=== PATIENT | male | born 1960 | race Caucasian/White ===

== ENCOUNTER → 2021-05-21 12:02 | Outpatient (CLI) | payer MEDICARE, SELFPAY ==
--- NOTE | 2021-05-21 | DI.CT.S_ITS ---
PROCEDURE: CT LUMBAR SPINE WO CON INDICATIONS: LOW BACK PAIN TECHNIQUE: Noncontrast 3 mm thick sections acquired from the T12 level to the sacrum. Sagittal and coronal reformats were constructed. For radiation dose reduction, the following was used: automated exposure control. COMPARISON: [facility] [place], CR, XR LUMBAR SPINE 2 OR 3 VIEWS, 04/23/2021, 14:01. FINDINGS: Image quality: Excellent. Bones: There is posterior fusion at L4-5. All hardware is intact without evidence of hardware fracture. There is 2 mm retrolisthesis of L2 on L3, L5 on S1 as well as grade 1 anterolisthesis of L4 on L5 measuring 8 mm. No acute vertebral body compression fractures. No suspicious lytic or blastic bony lesions. No pars defects. There is moderate disc space narrowing at L4-5. Mild disc bulges are present at L3-4 L5-S1. Minimal spinal stenosis at L2-3, L3-4. There is moderate bilateral foraminal narrowing at L5-S1 with facet hypertrophy. Soft tissues: No retroperitoneal masses or hematomas. Visualized aorta is normal in caliber. IMPRESSION: Posterior fusion at L4-5 with grade 1 anterolisthesis of L4 on L5 as above. Multilevel mild disc bulges as above. Moderate bilateral foraminal narrowing L5-S1 with facet arthropathy. Dictated by: Kayce Bernardo M.D. on 05/21/2021 at 16:00 Approved by: Kayce Bernardo M.D. on 05/21/2021 at 16:12
== END ==
PROVIDERS: PCP Nurse Practitioner; Referring Provider Orthopaedic Surgery Orthopaedic Surgery of the Spine; Visit Provider Orthopaedic Surgery Orthopaedic Surgery of the Spine
DX: M43.16 Spondylolisthesis, lumbar region (principal); M48.07 Spinal stenosis, lumbosacral region; Z98.1 Arthrodesis status; M51.26 Other intervertebral disc displacement, lumbar region; M51.27 Other intervertebral disc displacement, lumbosacral region
CPT/HCPCS: 72131

== ENCOUNTER 2022-04-17 10:15 | Outpatient (RCR) | payer MEDICARE, SELFPAY | END 2022-04-17 14:00 | LOC: PUL 10:15 | PROVIDERS: PCP Nurse Practitioner; Referring Provider Internal Medicine Pulmonary Disease; Visit Provider Internal Medicine Pulmonary Disease | DX: J98.6 Disorders of diaphragm (principal) | CPT/HCPCS: G0237; G0238 ==

== ENCOUNTER → 2023-01-19 10:51 | Outpatient (CLI) | payer OTHER, SELFPAY ==
--- NOTE | 2023-01-19 | DI.CT.S_ITS ---
PROCEDURE: CT UE LT W CON INDICATIONS: LEFT SHOULDER PAIN/SUBLUXATING BICEP TENDON TECHNIQUE: After the intra-articular administration of 12 mL of dilute non-ionic contrast, 1-1.5 mm thick sections acquired from the acromioclavicular joint to the inferior scapula, with coronal and sagittal reformatting. COMPARISON: [facility], [place], [place] SHOULDER INJECTION MR/CT LT, 01/19/2023, 12:15. FINDINGS: Image quality: Excellent. Bones: Moderate acromioclavicular joint osteoarthritis is seen with joint space narrowing, subchondral sclerosis and downward osteophyte formation depressing the musculotendinous junction of supraspinatus. Mild glenohumeral joint osteoarthritic changes also seen with joint space narrowing and subchondral sclerosis. No shoulder fracture or dislocation. No suspicious bony lesions. Visualized left upper ribs are intact. Soft tissues: There is contrast extravasation into subacromial subdeltoid bursa and acromioclavicular joint. Focal full-thickness perforation involving posterior fibers of distal supraspinatus at its insertion on the humeral head is seen without significant retraction of torn tendon fibers. Low-grade articular surface partial-thickness tear involving anterior to mid fibers of distal supraspinatus. Distal infraspinatus and subscapularis tendons show no gross abnormalities. No significant rotator cuff tendon muscle atrophy is noted on sagittal images. No gross intra-articular loose body is seen. No abnormal soft tissue calcifications. Visualized left lung field is clear. Evaluation of left shoulder labrum is limited due to modality. No obvious labral tear is seen. Biceps tendon is not well visualized on this study. IMPRESSION: 1. [id number] acromioclavicular joint osteoarthritis and mild glenohumeral joint osteoarthritis. No acute shoulder fracture or dislocation. No suspicious bony lesions. 2. Focal full-thickness rupture involving posterior fibers of distal supraspinatus at its insertion on the humeral head without significant retraction of torn tendon fibers. Low-grade articular surface partial-thickness tear involving the rest of the supraspinatus tendon. The infraspinatus and subscapularis tendons are grossly intact. 3. No definite focal labral tear. No gross intra-articular loose bodies. 4. Proximal long head of biceps tendon are not well visualized on this study. Dictated by: To Colon M.D. on 01/19/2023 at 20:09 Approved by: To oClon M.D. on 01/19/2023 at 20:23
--- NOTE | 2023-01-19 | DI.RAD.S_ITS ---
PROCEDURE: [place] SHOULDER INJECTION MR/CT LT INDICATIONS: LEFT SHOULDER PAIN/SUBLUXATING BICEP TENDON COMPARISON: [facility], CT, CT UE LT W CON, 01/19/2023, 11:33. TECHNIQUE: The indications, alternatives, benefits, risks, and complications of the procedure were explained to the patient. Written informed consent was obtained and placed in the chart. The shoulder was examined fluoroscopically and a site for needle placement chosen for entry into the glenohumeral joint from an anterior approach. The skin was prepped and draped in a sterile fashion, and 1% lidocaine infiltrated from skin down to joint capsule. A spinal needle was inserted into the glenohumeral joint, and a small amount of iodinated contrast media injected to confirm intra-articular placement of the needle tip. This was followed by approximately 12 mL of iodinated contrast. The needle was removed and a dressing was applied. The patient was given postprocedural instructions and sent to the CT suite for imaging. FINDINGS: A single fluoroscopic spot image demonstrates intra-articular location of injected iodinated contrast. IMPRESSION: Successful fluoroscopically guided administration of iodinated contrast solution into the shoulder joint for CT arthrogram. Dictated by: Benigno Magallon M.D. on 01/20/2023 at 9:24 Approved by: Benigno Magallon M.D. on 01/20/2023 at 9:24
== END ==
PROVIDERS: PCP Nurse Practitioner; Referring Provider Orthopaedic Surgery Sports Medicine; Visit Provider Orthopaedic Surgery Sports Medicine
DX: M75.122 Complete rotator cuff tear or rupture of left shoulder, not specified as traumatic (principal); M19.012 Primary osteoarthritis, left shoulder; M25.512 Pain in left shoulder
CPT/HCPCS: 23350; 73201

== ENCOUNTER → 2023-08-18 10:04 | Outpatient (CLI) | payer MEDICARE, SELFPAY ==
--- NOTE | 2023-08-18 | DI.NM.S_ITS ---
PROCEDURE: [place] BONE SCAN WHOLE BODY RADIOPHARMACEUTICAL: 21.1 mCi Tc-99m MDP IV. INDICATIONS: Malignant neoplasm of prostate TECHNIQUE: Delayed whole-body scintigrams were obtained approximately 3-4 hours after intravenous injection of radiotracer. Anterior and posterior views were acquired from vertex to feet. COMPARISON: [facility], CT, CT LUMBAR SPINE WO CON, 05/21/2021, 12:13. [facility] [place], CR, XR LUMBAR SPINE 2 OR 3 VIEWS, 04/23/2021, 14:01. [facility], CT, CT UE LT W CON, 01/19/2023, 11:33. FINDINGS: There is a focal uptake in the inferior aspect of sternum at the xiphisternal joint, likely benign. No lesions are identified in skull, clavicles, scapulae, ribs, bony pelvis, and visualized shafts of the long bones. There are foci of increased uptake in cervical, thoracic and lumbar spine most likely secondary to degenerative disc and facet disease; early metastasis to spine could be obscured by degenerative changes. There are foci of increased periarticular activity most pronounced in shoulders, sternoclavicular joints, knees, ankles and feet, compatible with degenerative/arthritic changes. IMPRESSION: 1. No definitive scintigraphic findings to suggest osseous metastatic disease. Dictated by: Benigno Magallon M.D. on 08/18/2023 at 17:30 Approved by: Benigno Magallon M.D. on 08/19/2023 at 7:49
== END ==
PROVIDERS: PCP Nurse Practitioner; Referring Provider Urology; Visit Provider Urology
DX: C61 Malignant neoplasm of prostate (principal)
CPT/HCPCS: 78306; A9503